=== PATIENT | male | born 2005 | race Two or more races ===

== ENCOUNTER 2024-04-12 11:17 | Emergency (ER) | payer MEDICAID, OTHER ==
[~2024-04-12] VITALS: Ht 177.8 cm; Wt 86.4 kg
[2024-04-12 14:26] VITALS: PULSE 85; RESP 16; TEMP 98.3; O2SAT 97
[2024-04-12] MEDS ORDERED: BAC09TP TOP (14:31)
[2024-04-12] MEDS ORDERED: CEPH500T PO (14:31)
[2024-04-12 14:43] VITALS: BP 113/70; PULSE 84; RESP 16; O2SAT 97
== END 2024-04-12 14:48 | disposition home or self-care (01) ==
LOC: ER 11:17
DX: N48.22 Cellulitis of corpus cavernosum and penis (principal); E11.9 Type 2 diabetes mellitus without complications